=== PATIENT | female | born 1995 ===

== ENCOUNTER 2020-06-06 21:37 | Emergency (ER) | payer SELFPAY ==
[2020-06-06 23:18] VITALS: BP 116/84
[2020-06-06 23:31] LABS: Bacteria,Urine 1+ /HPF (Negative); Bilirubin,Urine NEG (Negative); Blood,Urine NEG (Negative); Color,Urine Yellow (Yellow); Mucus,Urine 3+ /HPF
[2020-06-06 23:38] LABS: HCG Qualitative,Urine Negative (Negative)
--- NOTE | 2020-06-07 03:01 | Emergency Department Report ---
ED Female HPI - General Chief complaint: Abdominal Pain Stated complaint: ABD PAIN Time Seen by Provider: 06/07/20 00:23 Source: patient Mode of arrival: Ambulatory Limitations: No Limitations - History of Present Illness Initial comments: 24-year-old female presents emergency department complaining of tender vaginal rash which is been present to the groin area for the last 3 to 4 days symptoms are worse with palpation and range of motion of a burning sensation. States that it started after she shaved her pubic hair and she noticed a rash beginning to be developed. She is tried some [id number] treatments but have been unsuccessful reports no fever, chills, sweats reports no vaginal bleeding reports no vaginal discharge. No abdominal abdominal pain. She reports no known history of any event of any STDs and reports having no known history of any genital herpes. Location: perineum, suprapubic Severity: mild Quality: dull Consistency: constant Improves with: none Worsens with: none Are you Now?: No Associated Symptoms: rash. denies: vaginal discharge, vaginal bleeding, abdominal pain, nausea/vomiting, dysuria, hematuria, shortness of breath, syncope, weakness - Related Data Sexually active: Yes Previous Rx's Medication Instructions Recorded Last Taken Type Acyclovir [Zovirax Cap] 400 mg PO TID #15 cap 06/07/20 Unknown Rx Lidocaine Viscous 2% 5 ml MM Q3H PRN #120 udc 06/07/20 Unknown Rx Mupirocin [Bactroban 2%] 15 applic TP TID #15 gm 06/07/20 Unknown Rx cephALEXin [Keflex] 500 mg PO Q6HR #40 capsule 06/07/20 Unknown Rx Allergies Allergy/AdvReac Type Severity Reaction Status Date / Time No Known Allergies Allergy Unverified 06/06/20 22:50 ED Review of Systems ROS: Stated complaint: ABD PAIN Other details as noted in HPI Comment: All other systems reviewed and negative ED Past Medical Hx - Past Medical History Previous Medical History?: No - Surgical History Past Surgical History?: No - Social History Smoking Status: Never Smoker Substance Use Type: None - Medications Home Medications: Home Medications Medication Instructions Recorded Confirmed Last Taken Type Acyclovir [Zovirax Cap] 400 mg PO TID #15 cap 06/07/20 Unknown Rx Lidocaine Viscous 2% 5 ml MM Q3H PRN #120 udc 06/07/20 Unknown Rx Mupirocin [Bactroban 2%] 15 applic TP TID #15 gm 06/07/20 Unknown Rx cephALEXin [Keflex] 500 mg PO Q6HR #40 capsule 06/07/20 Unknown Rx ED Physical Exam - General Limitations: No Limitations General appearance: alert, in no apparent distress - Head Head exam: Present: atraumatic, normocephalic - Eye Eye exam: Present: normal appearance, PERRL, EOMI Pupils: Present: normal accommodation - ENT ENT exam: Present: normal exam, normal orophraynx, mucous membranes moist, TM's normal bilaterally - Neck Neck exam: Present: normal inspection, full ROM - Respiratory Respiratory exam: Present: normal lung sounds bilaterally. Absent: respiratory distress, wheezes, rales, chest wall tenderness, accessory muscle use - Cardiovascular Cardiovascular Exam: Present: regular rate, normal rhythm. Absent: systolic murmur, diastolic murmur, rubs, gallop - GI/Abdominal GI/Abdominal exam: Present: soft, normal bowel sounds. Absent: distended, tenderness, guarding, hyperactive bowel sounds, hypoactive bowel sounds, organomegaly - External exam: Present: lesions, other (Female with recently shaved pubic hair few follicular pustules noted to the right labia majora region with some excoriation to the left upper labia majora or region. Excoriation to the perineal region and the lower aspect of the labia.) - Extremities Exam Extremities exam: Present: normal inspection, full ROM, normal capillary refill - Back Exam Back exam: Present: normal inspection - Neurological Exam Neurological exam: Present: alert, oriented X3 - Psychiatric Psychiatric exam: Present: normal affect, normal mood - Skin Skin exam: Present: warm, dry, intact, normal color. Absent: rash ED Course Vital Signs 06/06/20 22:37 Temperature 99.4 F Pulse Rate 98 H Respiratory 18 Rate Blood Pressure 116/84 O2 Sat by Pulse 99 Oximetry ED Medical Decision Making - Medical Decision Making 24-year-old female status post shaving pubic hair development pain. Appears to be follicular in nature. Differential diagnosis also includes genital herpes Was chaperoned by female certified medical aide during examination. Critical care attestation.: If time is entered above; I have spent that time in minutes in the direct care of this critically ill patient, excluding procedure time. ED Disposition Clinical Impression: Rash of genital area Disposition: DC- TO HOME OR SELFCARE Is pt being admited?: No Does the pt Need Aspirin: No Condition: Stable Instructions: Abdominal Pain (ED) Prescriptions: Mupirocin [Bactroban 2%] 15 applic TP TID #15 gm cephALEXin [Keflex] 500 mg PO Q6HR #40 capsule Lidocaine Viscous 2% 5 ml MM Q3H PRN #120 udc PRN Reason: Pain, Moderate (4-6) Acyclovir [Zovirax Cap] 400 mg PO TID #15 cap Referrals: PRIMARY CARE, [Primary Care Provider] - 3-5 Days [facility] [Provider Group] - 3-5 Days
== END 2020-06-07 03:35 | disposition home or self-care (01) ==
LOC: ED 21:37
DX: R21 Rash and other nonspecific skin eruption (principal)
CPT/HCPCS: 81001; 81025; 87086